=== PATIENT | female | born 1945 | race Caucasian/White ===

== ENCOUNTER 2021-12-29 06:23 | Day surgery (SDC) | payer MEDICARE, BC, SELFPAY ==
[2021-12-29] VITALS (13 sets, daily range): BP systolic 140–177; BP diastolic 84–100; PULSE 68–78; RESP 12–72; TEMP 36.4–36.6; O2SAT 95–97; BMI 30.3
--- NOTE | 2021-12-29 06:49 | SUR.PREOP ---
pt tried to get pinky finger ring off and unable to will let Dr. Sterling aware
[2021-12-29] MEDS: BUPIVACAINE 0.5% 30 ML 5 ML INJECTION (07:32)
[2021-12-29] MEDS: lidocaine HCL 2 % MULTIDOSE 20 ML VIAL 7 ML INJECTION (07:32)
--- NOTE | 2021-12-29 07:48 | SUR.OPER ---
PATIENT QUESTIONS ANSWERED SATISFACTORILY PREOPERATIVELY.? PATIENT BROUGHT TO OR #2 PER CART.? Patient positioned supine on OR #2 bed.?The perioperative?team supported arms bilaterally on arm boards.? Final approval of positioning by surgeon.?
--- NOTE | 2021-12-29 08:05 | SUR.OPER ---
PRIOR TO LOCAL INJECTION IN THE RIGHT HAND, TIME OUT PREFORMED AT 07:31.
--- NOTE | 2021-12-29 08:08 | P.ORPRC_ITS ---
Procedure Note Date of procedure: 12/29/21 Procedure: Preop diagnosis: Recurrent Right upper extremity carpal tunnel syndrome Postop diagnosis: Recurrent Right upper extremity carpal tunnel syndrome Procedure: Revision Right upper extremity carpal tunnel release Anesthesia: Local Surgeon: Jono Sterling MD learning and development assistant: KHAI Rodriguez EBL: 5 mL Complications: None Specimens: None Drains: None Indications: The patient has a history of right upper extremity endoscopic carpal tunnel r elease in 2002. More recently, she has had recurrence of symptoms. EMG suggests recurrent carpal tunnel syndrome, radial sensory neuropathy and upper extremity radiculopathy. Despite appropriate nonoperative management consisting of nighttime bracing and occupational therapy they continue to have symptoms. Operative intervention was offered. The risks, benefits alternatives and expected outcomes were discussed in detail. These included but were not limited to: Infection, bleeding, injury to blood vessel or nerve, venous thromboembolism. All questions were answered to their satisfaction. The patient was placed supine on the operating room table. Local anesthesia was established with 0.5% Marcaine without epinephrine and 2% lidocaine without epinephrine. The hand was prepped and draped in usual sterile fashion. The limb was elevated the forearm pneumatic tourniquet was inflated to 250 mm of mercury. A longitudinal incision was made centered over the radial border of the ring fi nger at the base of the palm. Subcutaneous dissection was sharply taken through the palmar fascia and the palmaris brevis to the transverse carpal ligament. The ligament was divided in line with the incision. Proximal and distal dissection was carried with tenotomy and Metzenbaum scissors for a wide decompression of the carpal tunnel. The nerve was densely adherent to the ulnar side of transver se carpal ligament. This was carefully freed up with tenotomy scissors. The tourniquet was released , bleeding was controlled with direct pressure. The wound was closed with a 3-0 nylon. A bulky dry dressing was applied, sponge and needle counts were correct x 2. The patient tolerated the procedure well, there were no apparent complications. They were sent to same day surgery in satisfactory condition. Plan: Use of the hand as tolerates. Discontinue the intraoperative dressing on postoperative day 3 and may get the wound wet as tolerates. Follow up in the office in 2 weeks for a wound check and suture removal. I will plan to see her a month following that visit to assess her progress.
== END 2021-12-29 08:44 | disposition home or self-care (01) ==
PROVIDERS: PCP Internal Medicine; Visit Provider Orthopaedic Surgery
PROC: (CPT 64721; principal; 2021-12-29 07:30)
DX: G56.01 Carpal tunnel syndrome, right upper limb (principal)
CPT/HCPCS: 64721; J3490

== ENCOUNTER 2022-04-04 10:38 | Outpatient (CLI) | payer MEDICARE, BC, SELFPAY ==
[2022-04-04 09:12] LABS: Cholesterol* 142 mg/dL (90-199)
[2022-04-04 09:13] LABS: HDL Cholesterol* 63 mg/dL (>=50); LDL Cholesterol Calculated 54 mg/dL (<100); Triglycerides* 125 mg/dL (40-149)
[2022-04-04 09:27] LABS: Vitamin D 25 Hydroxy* 19 ng/mL (30-80)
== END 2022-04-04 10:39 | disposition home or self-care (01) ==
PROVIDERS: PCP Internal Medicine; Visit Provider Internal Medicine
DX: Z00.00 Encounter for general adult medical examination without abnormal findings (principal); E78.5 Hyperlipidemia, unspecified; M85.80 Other specified disorders of bone density and structure, unspecified site; I10 Essential (primary) hypertension; E55.9 Vitamin D deficiency, unspecified
CPT/HCPCS: 80061; 82306

== ENCOUNTER 2022-06-07 13:19 | Outpatient (CLI) | payer MEDICARE, BC, SELFPAY | END 2022-06-07 13:20 | disposition home or self-care (01) | LOC: NFLDREF 06-09 10:28 | PROVIDERS: PCP Internal Medicine; Visit Provider Internal Medicine | DX: R10.9 Unspecified abdominal pain (principal); R35.0 Frequency of micturition; N39.0 Urinary tract infection, site not specified | CPT/HCPCS: 87086 ==

== ENCOUNTER 2022-08-10 08:29 | Outpatient (CLI) | payer MEDICARE, BC, SELFPAY ==
--- NOTE | 2022-08-10 09:00 | CRLHL7_ITS ---
For Patients: As a result of the Century Cures Act, medical imaging exams and procedure reports are released immediately into your electronic medical record. You may view this report before your referring provider. If you have questions, please contact your health care provider. INDICATION: Left neck mass. COMPARISON: MRI cervical spine 06/24/2021. TECHNIQUE: CT soft tissue neck with IV contrast. ICD 370, 77 cc. FINDINGS: A marker is not present on the route driver or acquired CT images to further localized reported left neck mass. Normal bilateral parotid glands. Normal left submandibular gland. Atrophic right submandibular gland. Normal thyroid gland. Scattered small normal-sized cervical lymph nodes bilaterally. No supraclavicular or superior mediastinal adenopathy. Nasopharynx and oropharynx are clear. No inflammation within the parapharyngeal fat pads are retropharyngeal space. Asymmetric soft tissue prominence at the left base of tongue (series 3, image 31). No definite underlying mass. However, direct visualization may be helpful for further evaluation. Normal thickness of the epiglottis. Normal glottis with symmetric vocal cords. Lung apices are clear. Cervical spondylosis. No prevertebral soft tissue swelling. Mucous retention cyst right maxillary sinus. Remaining visualized paranasal sinuses and mastoid air cells are clear. IMPRESSION: 1. Normal left submandibular gland. Atrophic right submandibular gland. 2. No adenopathy. 3. Asymmetric mild soft tissue prominence at the left base of tongue. No definite discrete underlying mass. Direct visualization may be helpful for further evaluation. 4. Cervical spondylosis. No prevertebral soft tissue swelling. Please note that all CT scans at this facility use dose modulation, iterative reconstruction, and/or weight-based dosing when appropriate to reduce radiation dose to as low as reasonably achievable. Dictated by Javier Snow MD @ 08/10/2022 3:42:35 PM (Electronically Signed)
[2022-08-10 09:30] LABS: Creatinine* 0.6 mg/dL (0.5-1.5); Estimated Glomerular Filt Rate 91 ml/min
== END 2022-08-10 08:30 | disposition home or self-care (01) ==
LOC: CT 08:30
PROVIDERS: PCP Internal Medicine; Visit Provider Internal Medicine
DX: R22.1 Localized swelling, mass and lump, neck (principal); M47.892 Other spondylosis, cervical region
CPT/HCPCS: 36415; 70491; 82565; Q9967

== ENCOUNTER 2023-04-06 07:30 | Outpatient (CLI) | payer MEDICARE, BC, SELFPAY | END 2023-04-06 07:31 | disposition home or self-care (01) | LOC: NFLDREF 14:53 | PROVIDERS: PCP Internal Medicine; Referring Provider Internal Medicine; Visit Provider Internal Medicine | DX: M85.80 Other specified disorders of bone density and structure, unspecified site (principal); E78.5 Hyperlipidemia, unspecified | CPT/HCPCS: 80061; 82306 ==

== ENCOUNTER 2023-05-24 09:15 | Outpatient (RCR) | payer MEDICARE, BC, SELFPAY ==
--- NOTE | 2023-05-02 13:31 | PT.OPEX ---
PT [facility] Eval PT [facility] Out[facility] Eval Start: 05/02/23 07:20 Freq: Status: Active Protocol: Document 05/02/23 07:20 CRP (Rec: 05/02/23 08:34 CRP [id number]) E-signed By Werner Dhillon PT Physical Therapy Outpatient Evaluation Insurance Information Recert Due Date 07/31/23 Insurance Name Medicare B Medical Diagnosis Low Back Pain Subjective Subjective 2 weeks ago woke up and when getting up felt sharp pain on L side low back that went around to the groin. Buckled her knee it was so painful. 2 -3 days later was still unable to stand up straight and walking was difficult. Went into the Dr after this. Had Xrays of the back and hips/ pelvis. No major issues with Xrays but showed some arthritis. No pt only has 3/ 10 pain after sitting and going to standing. Needs to walk it off and then she is fine. Pt did have a medrol dose pack which she feels has been really helpful. No numbness or tingling. No pain down the LE. Pt is a retired teacher. 2017 she did have a stroke that has left her with some feelings of unsteadiness on her feet Pain Comments 2-3/10 Current Work Status Retired Preferred Name Sofiya Objective Range of Motion Trunk ROM Flex WNL Ext min dec with L LBP R SB WNL L SB min dec with L LBP R rot WNL L rot min/mod dec with L LBP Hip ROM R WNL L flex WNL, IR WNL, ER min restriction with groin pain Strength Myotomes WNL TrA and pelvic flex/ext control shows mild deficit Palpation Pain L paraspinals about L2-3 Sensation/Reflexes Sensation intact to light touch Other/Pertinent Objective PPIVM testing - shows good mobility into R SB, Restricted L SB SLR negative bilat Assessment Assessment/Impression Pt presents to the clinic with signs and sxs consistent with lumbar DDD/DJD and referral pain into the L LE. Pts presentation is characterized by painful loss of ROM with poor tolerance to facet closing, decreased lumbopelvic control, painful hypomobility of lumbar spine segments and poor tolerance to wt bearing activity. Skilled PT is necessary to incorporate ther ex, ther act, nm don, manual therapy and pt education to decrease pain and improve functional mobility. Plan of Care Rehabilitation Potential Excellent Physical Therapy Goals 1. Pt will be 100% independent with HEP in 8 weeks. 2. Pt will go sit to stand throughout the day without c.o pain in 10 weeks. 3. Pt will walk her dog as needed without pain in 12 weeks. Coordination/Communication With Referral Source Treatment Plan/Direct Interventions Joint Mobilization,Manual Therapy,Neuromuscular Re-ed, Therapeutic Activities, Therapeutic Exercises Frequency/Duration 1-2x/wk for 12 weeks Patient Will Be Discharged From Therapy Completion of LTG(s),Skills Plateau,Independent w/HEP, Independently Progressing Evaluation Billing Untimed Code Treatment Minutes 30 Complexity Moderate Certification Information Initial Certification Date 05/02/23 Ending Certification Date 07/31/23 Provider Signature Shows Agreement With POC & Medical Necessity Physician Signature & Date Requested Please Sign/Date Here Physician Comment/Change : Physician NPI Number #
== END 2023-05-24 10:12 | disposition home or self-care (01) ==
PROVIDERS: PCP Internal Medicine; Visit Provider Family Medicine
DX: M54.50 Low back pain, unspecified (principal); Z51.89 Encounter for other specified aftercare
CPT/HCPCS: 77080; 97110; 97140; 97162

== ENCOUNTER 2023-08-15 09:15 | Outpatient (RCR) | payer MEDICARE, BC, SELFPAY ==
--- NOTE | 2023-08-02 13:14 | PT.OPEX ---
Please sign the attached physical therapy evaluation completed on 08/02/23. Thank you. PT [facility] Eval PT [facility] Outpatient Eval Start: 08/02/23 07:16 Freq: Status: Active Protocol: Document 08/02/23 07:16 TLQ (Rec: 08/02/23 12:22 TLQ [id number]) E-signed By Jodi Rhodes DPT Physical Therapy Outpatient Evaluation Insurance Information Recert Due Date 10/31/23 Insurance Name Medicare B,[employer] Medical Diagnosis Other bursitis of hip, left hip M70.72 Treating Diagnosis Pain in left hip M25.552 Stiffness of left hip M25.652 Abnormal gait R26.9 Muscle weakness M62.81 Referring MD Jono Sterling MD Subjective Subjective Sofiya is here today to address pain in her left hip. Saw Dr. Luna who attributed her symptoms to arthritis, she saw PT for this which helped but had some continued pain. Saw Dr. Sterling yesterday who determined her pain was associated with bursitis, plans to have a percutaneous tenotomy following physical therapy to help heal the bursa . Hopes to be able to garden this spring. Has previously done yoga but is not able to tolerate the intense hip positions. Goes to the gym 2- 3x/week and uses the recumbent bike and treadmill, completes bike without pain. Pain increases with sit>stand transitions, initial first steps upon standing, and extended forward bending. Finds alleviation of symptoms with application of heat or a hot shower. History of stroke in 2017, notes lingering balance and dizziness symptoms . Prefers to sleep on her back , does not like lying on her left hip. PMHx: arthritis, stroke (2017) , osteoporosis, GERD Pain Comments at best: 0/10 at worst: 7/10 location: lateral L hip alleviating factors: rest, heat aggravating factors: sit>stand , initial steps, forward bending Date of Last Physician Visit 08/01/23 Current Work Status Retired Occupation Retired teacher Preferred Name Sofiya Precautions Therapy Limitations/Systems Review Not Limited Objective Other/Pertinent Objective RANGE OF MOTION - HIP (L) flexion WFL extension WFL internal rotation 20-degrees external rotation 45-degrees LOWER EXTREMITY STRENGTH hip flexion: R 5, L 4 pain hip extension: R 4+, L 4 hip abduction: 4+ B hip adduction: 4+ B hip IR: 4+ B hip ER: R 4+, L 4 pain PALPATION tender at greater trochanter, glute med/min, glute max JOINT MOBILITY normal SPECIAL TESTS - HIP DANY (+) for pain and restriction FADIR (-) LE distraction (+) relieves symptoms Lateral distraction: no change in symptoms GAIT without A.D. Functional Test Performed & Score Lower Extremity Functional Scale (LEFS) not assessed today, will administer at next visit Assessment Assessment/Impression Sofiya is an 78-year-old woman who presents to physical therapy today to address lateral left hip pain. Had previously attended physical therapy to address onset of symptoms which were associated with her lumbar spine, found some benefit but hip pain persisted. Returned to ortho on 08/01/23 who determined her symptoms were related to bursitis. Today she reports symptom aggravation with sit> stand transitions, initial steps upon standing, forward bending during yard work, and with combined hip flexion and external rotation. She finds relief at home with application of heat, reduction in symptoms in clinic today with manual long-axis distraction and manual interventions. Mobility observed in passive hip internal rotation, tenderness with palpation of left greater trochanter and gluteals. She was educated on today's examination findings and instructed through an initial home exercise program consisting of low-load isometric strength exercises which she was able to complete without irritating her symptoms. Goals were established and patient verbally agreed to POC. She will benefit from skilled interventions to reduce left hip pain for improved tolerance to ADL's and gardening. Primary Functional Limitations left hip pain, muscle weakness , sit>stand transitions, lying on her left side, initial steps, forward bending Plan of Care Rehabilitation Potential Good Physical Therapy Goals In 6-8 visits: - Patient will report 75% improvement in L hip symptoms for improved tolerance to daily activities. - Patient will report ability to garden for 30 minutes with <3/10 pain in her L hip. - Score on LEFS will improve by 9 points (MCID) to indicate improved function of her L hip with ADL's. - Patient will adhere to HEP in order to manage symptoms outside of formal PT. Treatment Plan/Direct Interventions Electrical Stimulation,Gait Training,Ice/Cold/ Vasopneumatic,Manual Therapy, Neuromuscular Re-ed,Self-Care/ Home Management,Therapeutic Activities,Therapeutic Exercises Frequency/Duration 1x/week for 6-8 weeks Patient Will Be Discharged From Therapy Completion of LTG(s),Skills Plateau,Independent w/HEP, Independently Progressing Evaluation Billing Untimed Code Treatment Minutes 30 Complexity Low Certification Information Initial Certification Date 08/02/23 Ending Certification Date 10/31/23 Provider Signature Shows Agreement With POC & Medical Necessity Physician Signature & Date Requested Please Sign/Date Here Physician Comment/Change : Physician NPI Number #
== END 2023-10-18 10:40 | disposition home or self-care (01) ==
PROVIDERS: PCP Internal Medicine; Visit Provider Orthopaedic Surgery
DX: M70.72 Other bursitis of hip, left hip (principal); Z51.89 Encounter for other specified aftercare
CPT/HCPCS: 97110; 97140; 97161

== ENCOUNTER 2023-09-13 06:39 | Outpatient (CLI) | payer MEDICARE, BC, SELFPAY ==
--- OUTSIDE RECORDS SUMMARY | 2023-09-13 06:42 | XMS_ITS | Clinical Summary ---
Author Organization [facility] Address [address] [place] [id number] Care Team Providers Care Dialysis Chief Equipment Technician Name Role Phone Varsha Rendon MD Primary Care Provider Allergies No known active allergies Medications Medication Sig Dispensed Refills Start Date End Date Status zolpidem (AMBIEN) 5 MG tabletIndications:Ins omnia Take 1 tablet (5 mg) by mouth nightly as needed for sleep 30 tablet 0 01/11/2015 Active Multiple Vitamins-Minerals (PRESERVISION AREDS PO) Take by mouth daily Active aspirin (ASA) 325 MG tablet Take 81 mg by mouth daily Active amLODIPine (NORVASC) 5 MG tablet Take 5 mg by mouth daily Active atorvastatin (LIPITOR) 40 MG tablet Take 40 mg by mouth daily Active pantoprazole (PROTONIX) 40 MG EC tablet Take 40 mg by mouth daily Active alendronate (FOSAMAX) 70 MG tabletIndications:Ost eoporosis, senile TAKE 1 TABLET BY MOUTH EVERY 7 DAYS 4 tablet 10/24/2019 Active clopidogrel (PLAVIX) 75 MG tablet 03/14/2017 Active Active Problems Problem Noted Date Diagnosed Date Family history of breast cancer 09/25/2017 Overview: sister Expressive aphasia 03/20/2017 Left pontine stroke 03/17/2017 AK (actinic keratosis) 01/19/2015 Verrucous keratosis 01/19/2015 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 Provider to review and confirm. Gastroesophageal reflux disease without esophagi tis 01/11/2015 Insomnia 01/11/2015 Elevated blood pressure read ing without diagnosis of hypertension 01/11/2015 Family history of colon cancer 12/12/1970 Immunizations Name Administration Dates Next Due COVID-19 MONOVALENT 12+ (Pfizer) 06/10/2020,04/24 Influenza (High Dose) 3 jas nt vaccine 02/18/2019,01/30/2018,02/19/2017,2015,01/11/2015 Influenza Vaccine 65+ (FLUAD) 01/04/2021 Influenza Vaccine 65+ (Fluzone HD) 01/12/2020 Pneumo Conj 13-V (2010&after) 04/23/2011 Pneumococcal 23 valent 04/23/2010 TDAP (Adacel,Boostrix) 04/23/2009 TDAP Vaccine (Boostrix) 01/04/2021 Family History Medical History Relation Comments Lymphoma Father Myocardial Infarction Father Colon Cancer Maternal Grandmother Colon Cancer Mother Other - See Comments Mother MVA Breast Cancer Sister Hyperlipidemia Sister Cancer No family hx of no family HX of skin cancer Relation Status Comments Daughter Alive Father Maternal Grandmother Mother Sister Alive Social History Tobacco Use Types Packs/Day Years Used Date Smoking Tobacco: Never Smokeless Tobacco: Never Tobacco Cessation:Counseling Given: No Alcohol Use Standard Drinks/Week Comments Yes 0 (1 standard drink = 0.6 oz pure alcohol) a glass or wine once or twice a month when we go out to dinn PHQ-2 Answer Date Recorded PHQ-2 Score 0 09/30/2018 Adolescent Education Answer Date Record ed Getting School Help Needed Not on file 02/04 Sex and Gender Information Value Date Recorded Sex Assigned at Female 09/23/2020 4:30 PM CDT Gender Identity Female 09/23/2020 4:30 PM CDT Sexual Orientation Straight 09/23/2020 4: 30 PM CDT Last Filed Vital Signs Vital Sign Reading Time Taken Comments Blood Pressure 124/62 01/12/2021 2:32 PM CDT Pulse 72 09/30/2018 11:10 AM CDT Temperature 36.7 ??C (98 ??F) 02/01/2015 8:54 AM CDT Respiratory Rate 16 02/01/2015 8:54 AM CDT Oxygen Saturation 96% 02/01/2015 8:54 AM CDT Inhaled Oxygen Concentration - - Weight 71.8 kg (158 lb 3.2 oz) 01/12/2021 2:32 P M CDT Height 154.9 cm (5' 1) 01/12/2021 2:32 PM CDT Body Mass Index 29.89 01/12/2021 2:32 PM CDT Plan of Treatment Health Maintenance Due Date Last Done Comments ADVANCE CARE PLANNING 1945 ANNUAL REVIEW OF HM ORDERS 1945 ZOSTER IMMUNIZATION (1 of 2) 1993 RSV VACCINE ( & 60+) (1 - 1-dose 60+ series) 2003 LIPID 01/12/2016 01/11/2015 GLUCOSE 01/11/2018 01/11/2015 FALL RISK ASSESSMENT 10/01/2019 09/30/2018, 09/25/2017, 10/11/2016, Additional history exists MEDICARE ANNUAL WELLNESS VISIT 10/01/2019 09/30/2018, 09/25/2017, 01/11/2015 COVID-19 Vaccine ( season) 2022 01/11/2022, 07/28/2021, 01/13/2021, Additional history exists PHQ-2 (once per calendar year) 2023 09/30/2018, 09/30/2018, 09/25/2017, Additional history exists INFLUENZA VACCINE (Season Ended) 2023 01/11/2022, 01/04/2021, 01/12/2020, Additional history exists DTAP/TDAP/TD IMMUNIZATION (3 - Td or Tdap) 01/04/2031 01/04/2021, 04/23/2009 DEXA 09/25/2032 09/25/2017, 01/20/2015 Pneumococcal Vaccine: 65+ Years Completed 04/23/2011, 04/23/2010 COLONOSCOPY Discontinued 10/21/2014, 09/15/2014 [address] SCREENING Discontinued CT COLONOGRAPHY Discontinued FIT Discontinued FLEX SIG Discontinued HPV IMMUNIZATION Aged Out No longer e ligible based on patient's age to complete this topic IPV IMMUNIZATION Aged Out No longer e ligible based on patient's age to complete this topic MENINGITIS IMMUNIZATION Aged Out No l onger eligible based on patient's age to complete this topic RSV MONOCLONAL ANTIBODY Aged Out No l onger eligible based on patient's age to complete this topic sDNA (Cologuard) Discontinued Procedures Procedure Name Priority Date/Time Associated Diagnosis Comments DX BONE DENSITY Routine 09/25/2017 11:47 AM CDT Asymptomatic postmenopausal state COMPREHENSIVE METABOLIC PANEL Routine 01/11/2015 11:03 AM CDT Routine general medical examination at a health care facility LIPID REFLEX TO DIRECT LDL PANEL Routine 01/11/2015 11:03 AM CDT Routine general medical examination at a health care facility COLONOSCOPY - HIM SCAN Routine 10/21/2014 from Last 3 Months or Most Recently Relevant to Health Maintenance Results * DX Hip/Pelvis/Spine (09/25/2017 11:47 AM CDT) Anatomical Region Laterality Modality Dexa Bone Mineral Den sity Narrative 09/25/2017 3:26 PM CDT DX Hip/Pelvis/Spine Order #: [id number] Study Notes? Kimi Euceda on 09/25/2017 11:52 AM ?? [place] [address] 09/25/2017 ?? PATIENT: Doris Lockwood CHART: [id number] : ??1945 AGE: ??72 year old SEX: ??female REFERRING PHYSICIAN: ??Ness Thompson ? PROCEDURE: ??Bone density scanning was performed using DXA technology of the lumbar spine and hip. ??Scanning was performed on a Layar scanner. ??Reporting is completed in the form of a T-score. ??The T-score represents the standard deviation from peak bone mass based on a young healthy adult. ?? REFERENCE T-SCORES: ?Normal ?-1.0 and greater ?Osteopenia ? Between -1.0 and -2.5 ?Osteoporosis ? -2.5 and less ? RISK FACTORS: ??Post-menopausal CURRENT TREATMENT: ??Calcium ?? FINDINGS: ? Lumbar Spine (L1-L4) ?T-score: ??2.0 ? Left Femoral Neck ?T-score: ??- 2.0 ? Right Femoral Neck ?T-score: ??- 1.9 ? Lumbar (L1-L4) BMD: 1.439 ? Total Hip Mean BMD: 0.884 ? The T score of the total lumbar spine is normal at +2.0. There are likely some atherosclerotic and osteosclerotic changes of the spine at L2-L4 that are falsely elevating the T score. L1 is only -0.3 though. The T score of the left femoral neck is -2.0 which is severe osteopenia The T score of the right femoral neck is -1.9 or moderate osteopenia. The FRAX calculation using the worst hip shows a 10 year probability of any fracture related to osteoporosis of 13% and of hip fracture of 3.1% Kaylin Arauz MD Ness Thompson MD IMG DEXA ORDERABLES * Lipid panel reflex to direct LDL (01/11/2015 11:03 AM CDT) Cholesterol 190 <200 mg/dL [facility] Comment: LDL Cholesterol is the primary guide to therapy. The NCEP recommends further evaluation of: patients with cholesterol greater than 200 mg/dL if additional risk factors are present, cholesterol greater than 240 mg/dL, triglycerides greater than 150 mg/dL, or HDL less than 40 mg/dL. Triglycerides 131 0 - 150 mg/dL [facility] Comment:Fasting specimen HDL Cholesterol 74 >50 mg/dL [facility] LDL Cholesterol Calculated 90 0 - 129 mg/dL [facility] Comment: LDL Cholesterol is the primary guide to therapy: LDL-cholesterol goal in high risk patients is <100 mg/dL and in very high risk patients is <70 mg/dL. VLDL-Cholesterol 26 0 - 30 mg/dL [facility] Cholesterol/HDL Ratio 2.6 0.0 - 5.0 [facility] Blood specimen (specimen) 01/11/2015 11:03 AM CDT 01/11/2015 11:06 AM CDT Flor Antonio TRAIN OPERATIONS SUPERVISOR ENGRAVER TENDER LAB - BL OOD ORDERABLES [facility] [address] [place] [address] * Comprehensive metabolic panel (01/11/2015 11:03 AM CDT) Sodium 141 133 - 144 mmol/L [facility] Potassium 3.9 3.4 - 5.3 mmol/L [facility] Chloride 105 94 - 109 mmol/L [facility] Carbon Dioxide 30 20 - 32 mmol/L [facility] Anion Gap 6 3 - 14 mmol/L [facility] Glucose 96 70 - 99 mg/dL [facility] Urea Nitrogen 16 7 - 30 mg/dL [facility] Creatinine 0.73 0.52 - 1.04 mg/dL [facility] GFR Estimate 78 >60 mL/min/1. 7m2 [facility] Comment:Non GFR Calc GFR Estimate If Black >90 GFR Calc >60 mL/min/1. 7m2 [facility] Calcium 9.0 8.5 - 10.1 mg/dL [facility] Bilirubin Total 0.6 0.2 - 1.3 mg/dL [facility] Albumin 4.0 3.4 - 5.0 g/dL [facility] Protein Total 7.3 6.8 - 8.8 g/dL [facility] Alkaline Phosphatase 105 40 - 150 U/L [facility] ALT 26 0 - 50 U/L [facility] AST 13 0 - 45 U/L [facility] Blood specimen (specimen) 01/11/2015 11:03 AM CDT 01/11/2015 11:06 AM CDT Flor Antonio TRAIN OPERATIONS SUPERVISOR ENGRAVER TENDER LAB - BL OOD ORDERABLES [facility] [address] [place] [address] * Colonoscopy - HIM Scan (10/21/2014) Narrative Alyssa Ibanez - 10/21/2014 Colonoscopy done on this date: 10/2014 (approximately), by this group: , results were normal. Follow up 5 yrs Patient Reported PROCEDURES from Last 3 Months or Most Recently Relevant to Health Maintenance Care Teams Dialysis Chief Equipment Technician Relationship Specialty Start Date End Date Varsha Rendon MD [facility] [address] [place] [address] PCP - General Internal Medicine 05/24/15
--- OUTSIDE RECORDS SUMMARY | 2023-09-13 06:43 | XMS_ITS | Referral Summary ---
Author Organization [facility] Address [address] [place] [address] Care Team Providers Care Internet Architect Name Role Phone Varsha Rendon MD Primary [...] TDAP (Adacel,Boostrix) 04/23/2009 TDAP Vaccine (Boostrix) 01/04/2021 Social History Tobacco Use Types Packs/Day Years [...] 01/12/2021 2:32 PM CDT Plan of Treatment Not on file Procedures Procedure Name Priority Date/Time Associated Diagnosis [...] 3:26 PM CDT DX Hip/Pelvis/Spine Order #: [id number] Study Notes? Kimi Euceda on 09/25/2017 11:52 AM ?? [place] [address] 09/25/2017 ?? PATIENT: Doris Lockwood CHART: [id number] : ??1945 AGE: ??72 year old SEX: ??female REFERRING PHYSICIAN: ??Ness Thompson ? PROCEDURE: ??Bone density scanning was performed using DXA technology of the lumbar spine and hip. ??Scanning was performed on a [employer] scanner. ??Reporting is completed in the form [...] 11:03 AM CDT) Cholesterol 190 <200 mg/dL [facility] Comment: LDL Cholesterol is the primary guide to therapy. The NCEP recommends further evaluation of: patients with cholesterol greater than 200 mg/dL if additional risk factors are present, cholesterol greater than 240 mg/dL, triglycerides greater than 150 mg/dL, or HDL less than 40 mg/dL. Triglycerides 131 0 - 150 mg/dL [facility] Comment:Fasting specimen HDL Cholesterol 74 >50 mg/dL [facility] LDL Cholesterol Calculated 90 0 - 129 mg/dL [facility] Comment: LDL Cholesterol is the primary guide to therapy: LDL-cholesterol goal in high risk patients is <100 mg/dL and in very high risk patients is <70 mg/dL. VLDL-Cholesterol 26 0 - 30 mg/dL [facility] Cholesterol/HDL Ratio 2.6 0.0 - 5.0 [facility] Blood specimen (specimen) 01/11/2015 11:03 AM CDT 01/11/2015 11:06 AM CDT Flor Antonio CAR AUDIO INSTALLER SMOKEHOUSE OPERATOR LAB - BL OOD ORDERABLES [facility] [address] [place] [address] * Comprehensive metabolic panel (01/11/2015 11:03 AM CDT) Sodium 141 133 - 144 mmol/L [facility] Potassium 3.9 3.4 - 5.3 mmol/L [facility] Chloride 105 94 - 109 mmol/L [facility] Carbon Dioxide 30 20 - 32 mmol/L [facility] Anion Gap 6 3 - 14 mmol/L [facility] Glucose 96 70 - 99 mg/dL [facility] Urea Nitrogen 16 7 - 30 mg/dL [facility] Creatinine 0.73 0.52 - 1.04 mg/dL [facility] GFR Estimate 78 >60 mL/min/1. 7m2 [facility] Comment:Non GFR Calc GFR Estimate If Black >90 GFR Calc >60 mL/min/1. 7m2 [facility] Calcium 9.0 8.5 - 10.1 mg/dL [facility] Bilirubin Total 0.6 0.2 - 1.3 mg/dL [facility] Albumin 4.0 3.4 - 5.0 g/dL [facility] Protein Total 7.3 6.8 - 8.8 g/dL [facility] Alkaline Phosphatase 105 40 - 150 U/L [facility] ALT 26 0 - 50 U/L [facility] AST 13 0 - 45 U/L [facility] Blood specimen (specimen) 01/11/2015 11:03 AM CDT 01/11/2015 11:06 AM CDT Flor Antonio CAR AUDIO INSTALLER SMOKEHOUSE OPERATOR LAB - BL OOD ORDERABLES [facility] [address] [place] [address] * Colonoscopy - HIM Scan (10/21/2014) Narrative Alyssa Ibanez - 10/21/2014 Colonoscopy done on this date: 10/2014 (approximately), by this group: , results were normal. Follow up 5 yrs Patient Reported PROCEDURES from Last 3 Months or Most Recently Relevant to Health Maintenance Care Teams Internet Architect Relationship Specialty Start Date End Date Varsha Rendon MD [facility] [address] [place] [address] PCP - General Internal Medicine 05/24/15
--- OUTSIDE RECORDS SUMMARY | 2023-09-13 06:43 | XMS_ITS | Clinical Summary ---
Author Organization [facility] Address [place], [place] [address] Care Team Providers Care Digital Printer Name Role Phone Varsha Rendon MD Primary Care Provider [phone] Allergies No known active allergies Medications Medication Sig Dispensed Refills Start Date End Date Status famotidine (PEPCID) 20 mg tablet Take 20 mg by mouth once daily. Active zolpidem (AMBIEN) 5 mg tablet Take 5 mg by mouth at bedtime if needed for Sleep. Active CALCIUM CARBONATE/VITAMIN D3 (CALCIUM + D ORAL) Take 600 mg by mouth. Active VIT A/VIT C/VIT E/ZINC/COPPER (PRESERVISION AREDS ORAL) Take by mouth 2 times daily. Active aspirin chewable 81 mg chewable tablet Take 81 mg by mouth once daily with a meal. Active atorvastatin (LIPITOR) 40 mg tabletIndications:Acute cerebrovascular accident (CVA) (HC) Take 1 tablet by mouth at bedtime. 30 tablet 03/19/2017 Active clopidogrel (PLAVIX) 75 mg tabletIndications:Acute cerebrovascular accident (CVA) (HC) Take 1 tablet by mouth every morning. 30 tablet 03/20/2017 Active levETIRAcetam (KEPPRA) 500 mg tabletIndications:Seizu res (HC) Take 1 tablet by mouth 2 times daily. For possible seizures (not seen on EEG) 60 tablet 03/19/2017 Active pantoprazole (PROTONIX) 40 mg delayed-release tablet Take 40 mg by mouth. Active amLODIPine (NORVASC) 5 mg tablet Take 5 mg by mouth. Active alendronate (FOSAMAX) 70 mg tablet Take 70 mg by mouth. 09/30/2018 Active Active Problems Problem Noted Date Diagnosed Date Expressive aphasia 03/20/2017 Left pontine stroke 03/17/2017 Hyperlipidemia 03/15/2017 Gastroesophageal reflux disease without esophagi tis 03/15/2017 Arterial ischemic stroke, MCA, left, acute 03/14 Immunizations Name Administration Dates Next Due Influenza, High-dose Inactivated 02/19/2017,01/21,01/11/2015 Pneumococcal Poly,23-Valent (Pneumovax) 04/23/19 11 Pneumococcal conj 13-Valent (Prevnar 13) 012 Tdap 04/23/2009 Family History Medical History Relation Name Comments Lymphoma Father non hodgkin lym phoma Cancer-colon Maternal Grandmother Ulcers Mother had ileostomy b ut son after, not sure if had cancer Cancer-breast Sister Relation Name Status Comments Father Maternal Grandfather Maternal Grandmother Mother Paternal Grandfather Paternal Grandmother Sister Alive Social History Tobacco Use Types Packs/Day Years Used Date Smoking Tobacco: Never Smokeless Tobacco: Never Comments:did try to smoke fo r a few months in college- got too dizzy Alcohol Use Standard Drinks/Week Comments Yes 2 (1 standard drink = 0.6 oz pur e alcohol) per month Sex and Gender Information Value Date Recorded Sex Assigned at Not on file Gender Identity Not on file Sexual Orientation Not on file Obstetrics History Last Filed Vital Signs Vital Sign Reading Time Taken Comments Blood Pressure 123/82 06/19/2019 1:15 PM ENGINEERING ADMINISTRATOR Pulse 79 06/19/2019 1:15 PM ENGINEERING ADMINISTRATOR Temperature 36.4 ??C (97.6 ??F) 03/19/2017 9:48 AM CS T Respiratory Rate 14 03/19/2017 9:48 AM ENGINEERING ADMINISTRATOR Oxygen Saturation 95% 03/19/2017 9:48 AM ENGINEERING ADMINISTRATOR Inhaled Oxygen Concentration - - Weight 70.8 kg (156 lb) 06/19/2019 1:15 PM ENGINEERING ADMINISTRATOR Height 154.9 cm (5' 1) 06/19/2019 1:15 PM ENGINEERING ADMINISTRATOR Body Mass Index 29.48 06/19/2019 1:15 PM ENGINEERING ADMINISTRATOR Plan of Treatment Health Maintenance Due Date Last Done Comments Depression screening for age 12+ 1955 Zoster (shingles) series for age 50+ (1 of 2) 1993 DEXA/DXA scan for age 65+ 2008 Medicare Wellness for age 65+ 2008 Tetanus booster 04/23/2019 04/23/2009 BMI (ht and wt on same day) for age 18+ 06/19/2020 06/19/2019 COVID-19 vaccine series (2022- season) 2022 Influenza for age 65+ 12/23/2023 02/19/2017 , 02/04/2016, 01/11/2015 Tdap Completed 04/23/2009 Pneumococcal series for age 65+ Completed 2, 04/23/2010 Advance Directives * Full Code (Latest Code Status on File) Date Activated Date Inactivated Comments 03/14/2017 10:58 PM 03/19/2017 4:49 PM Care Teams Digital Printer Relationship Specialty Start Date End Date Varsha Rendon MD [address] [facility] [place] [address] PCP - General Internal Medicine 03/19/17
--- OUTSIDE RECORDS SUMMARY | 2023-09-13 06:43 | XMS_ITS | Continuity of Care Document ---
Author Organization [facility] Address [address] [address] [place] [address] Phone Care Team Providers Care Tanner Rotary Drum Continuous Process Name Role Phone No Information Unavailable Unavailable Allergies, Adverse Reactions, Alerts Substance Reaction Status Criticality No Known allergies Medications Medication Instructions Dosage Effective Dates (start - stop) Status Comments clopidogrel 75 mg tablet take 1 tablet by oral route every day 75 MG - Active atorvastatin 40 mg tablet take 1 tablet by oral route every day 40 MG - Active pantoprazole 40 mg tablet,delayed release take 1 tablet by ORAL route every day 40 MG - Active amlodipine 5 mg tablet take 1 tablet by ORAL route every day 5 MG - Active Fosamax 70 mg tablet take 1 tablet by ORAL route every week in the morning, at least 30 minutes before the first food, beverage, or medication of the day 70 MG - Active PRESERVISION AREDS (unknown strength) Not Available - Active aspirin 81 mg tablet,delayed release take 1 tablet by oral route every day 81 MG - Active omeprazole 20 mg capsule,delayed release take 1 capsule by oral route every day 20 MG No Longer Active famotidine 40 mg tablet take 1 tablet by oral route every day at bedtime 40 MG No Longer Active atorvastatin 10 mg tablet take 1 tablet by oral route every day 10 MG No Longer Active zolpidem 5 mg tablet take 1 tablet by oral route every day as needed 5 MG - No Longer Active Procedures Procedure Date Colonoscopy Flex; W/remov Les- 21 Level Iv-surg Path Gross/micro 21 Colonoscopy Flex; W/bx 1/mx Level Iv-surg Path Gross/micro 15 Advance Directives Directive Yes / No Effective Date File Name No Information Encounters Encounter Description Practice Location Reason(s) For Visit Diagnoses Date Provider Providers Copied on Encounter [facility] Lela MAYELIN, [address] [address], [place], [id number], [place] tel:[phone] No Information 1 No Information [facility] Lela MAYELIN, [address] [address], [place], [id number], [place] tel:[phone] [facility] Personal history of colonic polypsColorectal polyp detected on colonoscopyDiver ticulosis of colon without diverticulitisEn counter for screening for malignant neoplasm of colonBenign neoplasm of descending colonDvrtclos of lg int w/o perforation or abscess w/o bleedingBenign neoplasm of descending colonPersonal history of colonic polyps 1 Jack Hernandez. [address] [place] [address], [id number], [place]. tel:[phone] Referring Provider: Referral Self, USE FOR SELF REFERRALS. [facility] Lela MAYELIN, [address] [address], [place], [id number], [place] tel:[phone] [facility] No Information 1 Jack Hernandez. [address], [id number], [place]. tel:[phone] [facility] Lela MAYELIN, [address] [address], [place], [id number], [place] tel:[phone] [facility] Colon polypDiverticulo sisColon Cancer ScreeningFamily Hx GI Tract CancerDiverticul osis Of ColonBenign Neoplasm Colon 5 No Information [facility] Lela MAYELIN, [address] [address], [place], [id number], tel:[phone] [facility] External Referral 5 Jordan Silva. [address] [facility], [address], [id number], [place]. tel:[phone] Family History Family Member Type Diagnosis Age At Onset Father Problem (finding) Non-Hodgkin's lymphoma Mother Problem (finding) Maternal grandmother Problem (finding) Maternal grandmother Problem (finding) cancer of colon Daughter Problem (finding) Alive and well Sister Problem (finding) Alive and well Father Problem (finding) Immunizations Vaccine Date Status Comments SARS-COV-2 (COVID-19) vaccin e, mRNA, spike protein, LNP, preservative free, 30 mcg/0.3mL dose administered Note: [facility] bi-direct ional interface ; Source: Other Registry SARS-COV-2 (COVID-19) vaccin e, mRNA, spike protein, LNP, preservative free, 30 mcg/0.3mL dose administered Note: [facility] bi-direct ional interface ; Source: Other Registry influenza, high-dose seasona l, quadrivalent, .7mL dose, preservative free administered Note: [facility] bi-direct ional interface ; Source: Other Registry influenza, high dose seasona l, preservative-free administered Note: [facility] bi-direct ional interface ; Source: Other Registry influenza, high dose seasona l, preservative-free administered Note: [facility] bi-direct ional interface ; Source: Other Registry influenza, high dose seasona l, preservative-free administered Note: [facility] bi-direct ional interface ; Source: Other Registry influenza, high dose seasona l, preservative-free administered Note: [facility] bi-direct ional interface ; Source: Other Registry influenza, high dose seasona l, preservative-free administered Note: [facility] bi-direct ional interface ; Source: Other Registry Prevnar administered Note: [facility] bi-d irectional interface ; Source: Other Registry Pneumovax administered Note: [facility] bi-d irectional interface ; Source: Other Registry tetanus toxoid, reduced diphtheria toxoid, and acellular pertussis vaccine, adsorbed administered Note: [facility] b i-directional interface ; Source: Other Registry Payers Payer name Insurance type Covered constitution party ID Authoriza tion(s) No Information Social History Type Description Quantity Date Captured Comments Sex Female Smoking Status No Information Chief Complaint And Reason For Visit No Information Reason For Referral Reason For Referral No Information Plan Of Treatment Date Type Action Status Referral Ordered: Colonoscopy Appointment date/timeframe: 09/15/2014 ordered History Of Present Illness Encounter Date Complaint History Of Prese nt Illness No Information Functional Status Date Functional Assessmen t No Information Instructions Date Instruction Additional Infor mation Diverticulosis/Diverticulitis Re lated to Colorectal polyp detected on colonoscopy Colon Polyps Related to Color ectal polyp detected on colonoscopy Colon Cancer Prevention Related to Colorectal polyp detected on colonoscopy High Fiber Diet Related to Color ectal polyp detected on colonoscopy Colon Cancer Prevention Related to Colon polyp Colon Polyps Related to Colon polyp Diverticulosis/Diverticulitis Re lated to Colon polyp Assessments Type Assessment Date No Information Patient Care Teams Name Effective Dates (start - stop) Status Members No Information
--- OUTSIDE RECORDS SUMMARY | 2023-09-13 06:43 | XMS_ITS | Encounter Summary ---
Author Organization [facility] Address [address] [place] [address] Care Team Providers Care Rater Associate Name Role Phone Flor Antonio APRN, CNP Unavailable Verified, No Ref-Primary Primary Care Provider U Liv Fregoso MD Unavailable Varsha Rendon MD Primary Care Provider Ness Thompson MD Unavailable Kelly Watson APRN DAIRY TECHNICIAN Unavailable Ness Thompson MD Unavailable Kelly Watson APRN DAIRY TECHNICIAN Unavailable Ness Thompson MD Unavailable Reason for Referral * CV Cardio consult - Closed Specialty Diagnoses / Procedures Referred By Nicolette t Referred To Contact Diagnoses Elevated blood pressure reading without diagnosis of hypertension Flor Antonio APRN CNP [address] [address] [facility] [address] [place] [address] [address] [place] [address] Phone: [phone] Referral ID Status Reason Start Date Expiration Date Visits Re quested Visits Authorized [id number] Closed 05/03/2015 05/02/2016 1 1 Comments Your provider has referred you to: [facility]: [email or web address] [facility]: [facility] [email or web address] [facility]: [facility] - [facility] [email or web address] Please be aware that coverage of these services is subject to the terms and limitations of your health insurance plan. Call member services at your health plan with any benefit or coverage questions. Type of Referral: New Cardiology Consult Timeframe requested: Within 1 month Please bring the following to your appointment: >> Any x-rays, CTs or MRIs which have been performed. Contact the facility where they were done to arrange for picker tender prior to your scheduled appointment. Any new CT, MRI or other procedures ordered by your specialist must be performed at a [facility] facility or coordinated by your clinic's referral office. >> List of current medications >> This referral request >> Any documents/labs given to you for this referral AGE SALES REPRESENTATIVE Reason for Visit * Reason Onset Date Comments Referral 04/30/2015 Cardiology Encounter Details Date Type Department Care Team ([facility] st Contact Info) Description 04/30/[address] [address] Flor Antonio APRN CNP [address] [id number] Referral (Cardiology) Social History Tobacco Use Types Packs/Day Years Used Date Smoking Tobacco: Never Smokeless Tobacco: Never Alcohol Use Standard Drinks/Week Comments Yes 0 (1 standard drink = 0.6 oz pure alcohol) a glass or wine once or twice a month when we go out to dinn Sex and Gender Information Value Date Recorded Sex Assigned at Female 09/23/2020 4:30 PM CDT Gender Identity Female 09/23/2020 4:30 PM CDT Sexual Orientation Straight 09/23/2020 4: 30 PM CDT documented as of this encounter Miscellaneous Notes * Telephone Encounter - Armen Rhodes RN - 05/03/2015 9:08 AM CST Professor Of Chemical Engineering reviewed - and returned call to patient 1. Left non detailed voicemail for patient to check Mychart or return call to clinic 2. Professor Of Chemical Engineering sent patient ChiScanhart message with referral information attached Armen Rhodes RN AGE SALES REPRESENTATIVE * Telephone Encounter - Flor Antonio APRN CNP - 05/03/2015 8:53 AM CST Referral approved. AGE SALES REPRESENTATIVE * Telephone Encounter - Eben Parish RN - 04/30/2015 3:27 PM CST Pended referral Sign if you agree. Alonzo Parish RN AGE SALES REPRESENTATIVE * Telephone Encounter - Fallon Shin - 04/30/2015 1:57 PM CST Main reason for the call: Doris is calling in needing a referral for Cardiology. She states backin September 2014 she saw [place] for the first time and had High BP. She had to follow 2-3 weeks after that and was doing okay. Now patient states her BP is high again and wants to see a lead supply worker. Please call patient to discuss. (If Osheet) brief description and duration of symptoms Have you offered an Evisit or Virtual visit if appropriate? Wants a reply via Phone Ok for the call to wait for PCP? NO (be aware that if the patients PCP is out of clinic to be sure you are letting the patient know when they will be back in. Look not only at regularly scheduled dayoff but if they are on vacation or not.) May leave detailed message?: YES Consent on file to speak with caller? YES. If not, please obtain verbal consent from patient prior to sending the message. A RX may be necessary please provide name and location of the patients Preferred pharmacy: ---- AGE SALES REPRESENTATIVE documented in this encounter Plan of Treatment Scheduled Referrals Name Type Priority Associated Diagnoses Orde r Schedule CARDIOLOGY EVAL ADULT REFERRAL Referral Routine Elevated blood pressure reading without diagnosis of hypertension Ordered: 05/03/2015 documented as of this encounter Visit Diagnoses Diagnosis Elevated blood pressure reading without diagnosis of hypertension- Primary documented in this encounter Care Teams Rater Associate Relationship Specialty Start Date End Date Verified, No Ref-Primary PCP - General 01/12/15 05/23/15 Varsha Rendon MD [facility] [address] [place] [address] PCP - General Internal Medicine 05/24/15 Flor Antonio APRN DAIRY TECHNICIAN Referring Physician Nurse Practitioner 01/12/15 10/21/20 Liv Costa MD [facility] [address] [facility] [address] [place], [place] [address] Dermatology 01/12/15 03/12/17 Ness Thompson MD XXX RETIRED 09/20/2021 XXX Assigned OBGYN Provider 02/13/2004/03 Kelly Watson APRN DAIRY TECHNICIAN [address] [facility] [address] [place] [address] Assigned OBGYN Provider 12/26/20 Ness Thompson MD XXX RETIRED 09/20/2021 XXX Assigned OBGYN Provider 01/16/21 Kelly Watson APRN [facility] [address] [address] Assigned OBGYN Provider 01/14/22 3 3 Ness Thompson MD XXX RETIRED 09/20/2021 XXX Assigned OBGYN Provider 06/24/22 documented as of this encounter
--- OUTSIDE RECORDS SUMMARY | 2023-09-13 06:43 | XMS_ITS | Encounter Summary ---
Author Organization [facility] Address [address] [place] [address] Care Team Providers Care Fountain Pen Turner Name Role Phone MelykishaFlor serrato APRN VINYL DIPPER Unavailable Verified, No Ref-Primary Primary Care Provider U Lvi Fregoso MD Unavailable Varsha Rendon MD Primary Care Provider Ness Thompson MD Unavailable Kelly Watson APRN VINYL DIPPER Unavailable Ness Thompson MD Unavailable [phone] Kelly Watson APRN VINYL DIPPER Unavailable Ness Thompson MD Unavailable [phone] Encounter Details Date Type Department Care Team (Late st Contact Info) Description 05/03/2015 [facility] [address] [address] Armen Rhodes RN Social History Tobacco Use Types Packs/Day Years [...] PM CDT documented as of this encounter Plan of Treatment Not on file documented as of this encounter Visit Diagnoses Not on filedocumented in this encounter Care Teams Fountain Pen Turner Relationship Specialty Start Date End Date Verified, No Ref-Primary PCP - General 01/12/15 05/23/15 Varsha Rendon MD [facility] & [address] [address] PCP - General Internal Medicine 05/24/15 Flor Antonio APRN VINYL DIPPER Referring Physician Nurse Practitioner 01/12/15 10/21/20 Liv Costa MD [facility] [address] [address] Dermatology 01/12/15 03/12/17 Ness Thompson MD XXX RETIRED 09/20/2021 XXX Assigned OBGYN Provider 02/13/2004/03 Kelly Watson APRN VINYL DIPPER [address] [facility] [address] [place] [address] Assigned OBGYN Provider 12/26/20 Ness Thompson MD XXX RETIRED 09/20/2021 XXX Assigned OBGYN Provider 01/16/21 Kelly Watson APRN VINYL DIPPER [address] [facility] [address] [place] [address] Assigned OBGYN Provider 01/14/22 3 3 Ness Thompson MD XXX RETIRED 09/20/2021 XXX Assigned OBGYN Provider 06/24/22 documented as of this encounter
--- OUTSIDE RECORDS SUMMARY | 2023-09-13 06:43 | XMS_ITS | Continuity of Care Document ---
Author Organization [facility] Address [address] [address] [place] [address] Care Team Providers Care Carburetor Specialist Name Role Phone [place], [place] Unavailable Unav ailable Procedures Procedure Date Colono Advance Directives Directive Yes / No Effective Date File Name No Information Encounters Encounter Description Practice Location Reason(s) For Visit Diagnoses Date Provider Providers Copied on Encounter [facility], [address] [address], [place], [place], [id number], [facility] No Information [facility]. [address] [address], [place], [place], [id number], . tel:[phone] Family History Family Member Type Diagnosis Age At Onset No Information Payers Payer name Insurance type Covered republican ID Authoriza tion(s) No Information Social History Type Description Quantity Date Captured Comments Sex Female Smoking Status No Information Chief Complaint And Reason For Visit No Information Reason For Referral Reason For Referral No Information History Of Present Illness Encounter Date Complaint History Of Prese nt Illness No Information Functional Status Date Functional Assessmen t No Information Instructions Date Instruction Additional Infor mation No Information Assessments Type Assessment Date No Information Patient Care Teams Name Effective Dates (start - stop) Status Members No Information
[2023-09-13 06:56] VITALS: BP 141/78; PULSE 81; RESP 16; O2SAT 96
[2023-09-13 07:30] VITALS: BP 148/92; PULSE 83; RESP 16; O2SAT 97
--- NOTE | 2023-09-13 07:32 | P.ORPRC_ITS ---
Procedure Note Date of procedure: 09/13/23 Procedure: PREOPERATIVE DIAGNOSIS: Left hip abductor tendinopathy/greater trochanteric bursitis POSTOPERATIVE DIAGNOSIS: Left hip abductor tendinopathy/greater trochanteric bursitis NAME OF OPERATION: Percutaneous tenotomy SURGEON: Jono Sterling MD SENIOR CONTROLS ANALYST: aLtricia Story PA-C ANESTHESIA: Local ESTIMATED BLOOD LOSS: 2 mL. COMPLICATIONS: None. SPECIMENS: None. DRAINS: None. PREOPERATIVE ANTIBIOTICS: None INDICATIONS: The patient is a 78-year-old with a history of left hip pain secondary to the above diagnoses. Despite appropriate non operative management, they continue to have symptoms. Operative intervention was recommended. The risks, benefits and expected outcomes were discussed in detail. These included but were not limited to: Infection, bleeding, injury to blood vessel or nerve, venous thromboembolism. All questions were answered to their satisfaction. PROCEDURE: The patient was placed in the lateral decubitus position. The left hip was imaged in the long and short axes with the ultrasound transducer. Normal acoustic landmarks were identified. We then sterilely prepped and draped the skin, and used a sterile probe cover with sterile gel. Local anesthesia was established with 10 mL of a solution containing 2 % lidocaine without epinephrine, 0.5% Marcaine without epinephrine and sodium bicarbonate. An 11 blade was used to incise the skin. The Tenex TX 2 micro tip was used to treat the abductor tendon for a total of 4 minutes and 0 seconds. The incision was Steri-Stripped closed. A dry dressing was applied. Sponge and needle counts were correct x2. The patient tolerated the procedure well. There were no apparent complications. They were discharged to home in satisfactory condition. PLAN: The patient may weightbear as tolerates. Tylenol can be used for pain/discomfort. They may ramp up activity as the hip will allow. They will follow up in the office in 6 weeks to assess their progress.
== END 2023-09-13 07:38 | disposition home or self-care (01) ==
PROVIDERS: PCP Internal Medicine; Visit Provider Orthopaedic Surgery
DX: M70.62 Trochanteric bursitis, left hip (principal)
CPT/HCPCS: 27006; 76942; J0665

== ENCOUNTER 2024-01-17 14:10 | Outpatient (CLI) | payer MEDICARE, BC, SELFPAY ==
--- OUTSIDE RECORDS SUMMARY | 2024-01-20 18:30 | XMS_ITS | Clinical Summary ---
Author Organization [facility] Address [address] [place] [address] Care Team Providers Care Spray Painter Helper Name Role Phone Varsha Rendon MD Primary [...] 3:26 PM CDT DX Hip/Pelvis/Spine Order #: [id number] Study Notes? Kimi Euceda on 09/25/2017 11:52 AM ?? [place] [address] 09/25/2017 ?? PATIENT: Doris Woods [facility] CHART: [id number] : ??1945 AGE: ??72 year old SEX: ??female REFERRING PHYSICIAN: ??Ness Thompson ? PROCEDURE: ??Bone density scanning was performed using DXA technology of the lumbar spine and hip. ??Scanning was performed on a [employer] scanner. ??Reporting is completed in the form [...] 11:03 AM CDT) Cholesterol 190 <200 mg/dL [facility] Comment: LDL Cholesterol is the primary guide to therapy. The NCEP recommends further evaluation of: patients with cholesterol greater than 200 mg/dL if additional risk factors are present, cholesterol greater than 240 mg/dL, triglycerides greater than 150 mg/dL, or HDL less than 40 mg/dL. Triglycerides 131 0 - 150 mg/dL [facility] Comment:Fasting specimen HDL Cholesterol 74 >50 mg/dL [facility] LDL Cholesterol Calculated 90 0 - 129 mg/dL [facility] Comment: LDL Cholesterol is the primary guide to therapy: LDL-cholesterol goal in high risk patients is <100 mg/dL and in very high risk patients is <70 mg/dL. VLDL-Cholesterol 26 0 - 30 mg/dL [facility] Cholesterol/HDL Ratio 2.6 0.0 - 5.0 [facility] Blood specimen (specimen) 01/11/2015 11:03 AM CDT 01/11/2015 11:06 AM CDT Flor Antonio ARTISTIC ASSOCIATE BLOCK CUTTER LAB - BL OOD ORDERABLES [facility] [address] [place] [address] * Comprehensive metabolic panel (01/11/2015 11:03 AM CDT) Sodium 141 133 - 144 mmol/L [facility] Potassium 3.9 3.4 - 5.3 mmol/L [facility] Chloride 105 94 - 109 mmol/L [facility] Carbon Dioxide 30 20 - 32 mmol/L [facility] Anion Gap 6 3 - 14 mmol/L [facility] Glucose 96 70 - 99 mg/dL [facility] Urea Nitrogen 16 7 - 30 mg/dL [facility] Creatinine 0.73 0.52 - 1.04 mg/dL [facility] GFR Estimate 78 >60 mL/min/1. 7m2 [facility] Comment:Non GFR Calc GFR Estimate If Black >90 GFR Calc >60 mL/min/1. 7m2 [facility] Calcium 9.0 8.5 - 10.1 mg/dL [facility] Bilirubin Total 0.6 0.2 - 1.3 mg/dL [facility] Albumin 4.0 3.4 - 5.0 g/dL [facility] Protein Total 7.3 6.8 - 8.8 g/dL [facility] Alkaline Phosphatase 105 40 - 150 U/L [facility] ALT 26 0 - 50 U/L [facility] AST 13 0 - 45 U/L [facility] Blood specimen (specimen) 01/11/2015 11:03 AM CDT 01/11/2015 11:06 AM CDT Flor Antonio ARTISTIC ASSOCIATE BLOCK CUTTER LAB - BL OOD ORDERABLES [facility] [address] [place] [address] * Colonoscopy - HIM Scan (10/21/2014) Narrative Alyssa Ibanez - 10/21/2014 Colonoscopy done on this date: 10/2014 (approximately), by this group: , results were normal. Follow up 5 yrs Patient Reported PROCEDURES from Last 3 Months or Most Recently Relevant to Health Maintenance Care Teams Spray Painter Helper Relationship Specialty Start Date End Date Varsha Rendon MD [facility] [address] [place] [address] PCP - General Internal Medicine 05/24/15
--- OUTSIDE RECORDS SUMMARY | 2024-01-20 18:31 | XMS_ITS | Continuity of Care Document ---
Author Organization [facility] Address [address] [address] [place] [address] Phone Care Team Providers Care Tortilla Maker Name Role Phone No Information Unavailable Unavailable [...] Diagnoses Date Provider Providers Copied on Encounter [facility] Kidlandia MAYELIN, [address] [address], [place], [id number], [place] tel:[phone] No Information 1 No Information [facility] Kidlandia MAYELIN, [address] [address], [place], [id number], [place] tel:[phone] [facility] Personal history of colonic polypsColorectal polyp detected on colonoscopyDiver ticulosis of colon without diverticulitisEn counter for screening for malignant neoplasm of colonBenign neoplasm of descending colonDvrtclos of lg int w/o perforation or abscess w/o bleedingBenign neoplasm of descending colonPersonal history of colonic polyps 1 Jack Hernandez. [address] [place] [address], [id number], [place]. tel:[phone] Referring Provider: Referral Self, USE FOR SELF REFERRALS. [facility] Kidlandia MAYELIN, [address] [address], [place], [id number], [place] tel:[phone] [facility] No Information 1 Jack Hernandez. [address], [id number], [place]. tel:[phone] [facility] Kidlandia MAYELIN, [address] [address], [place], [id number], [place] tel:[phone] [facility] Colon polypDiverticulo sisColon Cancer ScreeningFamily Hx GI Tract CancerDiverticul osis Of ColonBenign Neoplasm Colon 5 No Information [facility] Kidlandia MAYELIN, [address] [address], [place], [id number], tel:[phone] [facility] External Referral 5 Jordan Silva. [address] [facility], [address], [id number], [place]. tel:[phone] Family History Family Member Type Diagnosis Age [...] Registry Payers Payer name Insurance type Covered republican [...]
--- OUTSIDE RECORDS SUMMARY | 2024-01-20 18:31 | XMS_ITS | Continuity of Care Document ---
Author Organization [facility] Address [address] [address] [place] [address] Care Team Providers Care Shore Hand Dredge Or Barge Name Role Phone [place], [place] Unavailable Unav ailable Procedures Procedure Date Colono Advance Directives Directive Yes / No Effective Date File Name No Information Encounters Encounter Description Practice Location Reason(s) For Visit Diagnoses Date Provider Providers Copied on Encounter [facility], [address] [address], [place], [place], [id number], [facility] No Information [facility]. [address] [address], [place], [place], [id number], . tel:[phone] Family History Family Member Type Diagnosis Age At Onset No Information Payers Payer name Insurance type Covered libertarian ID Authoriza tion(s) No Information Social History [...]
--- OUTSIDE RECORDS SUMMARY | 2024-01-20 18:31 | XMS_ITS | Clinical Summary ---
Author Organization [facility] Address [place], [place] [address] Care Team Providers Care Internal Medicine Nurse Practitioner Name Role Phone Varsha Rendon MD Primary Care Provider [phone] Allergies No known active allergies Medications Medication [...] Comments Blood Pressure 123/82 06/19/2019 1:15 PM YARD HOSTLER Pulse 79 06/19/2019 1:15 PM YARD HOSTLER Temperature 36.4 ??C (97.6 ??F) 03/19/2017 9:48 AM CS T Respiratory Rate 14 03/19/2017 9:48 AM YARD HOSTLER Oxygen Saturation 95% 03/19/2017 9:48 AM YARD HOSTLER Inhaled Oxygen Concentration - - Weight 70.8 kg (156 lb) 06/19/2019 1:15 PM YARD HOSTLER Height 154.9 cm (5' 1) 06/19/2019 1:15 PM YARD HOSTLER Body Mass Index 29.48 06/19/2019 1:15 PM YARD HOSTLER Plan of Treatment Health Maintenance Due Date [...] 10:58 PM 03/19/2017 4:49 PM Care Teams Internal Medicine Nurse Practitioner Relationship Specialty Start Date End Date Varsha Rendon MD [address] [place] [address] PCP - General Internal Medicine 03/19/17
--- OUTSIDE RECORDS SUMMARY | 2024-01-20 18:31 | XMS_ITS | Encounter Summary ---
Author Organization [place] Address [address] [place] [address] Care Team Providers Care Lab Manager Name Role Phone MelykishaFlor serrato APRN QI SPECIALIST Unavailable Verified, No Ref-Primary Primary Care Provider U Liv Fregoso MD Unavailable Varsha Rendon MD Primary Care Provider Ness Thompson MD Unavailable Kelly Watson APRN QI SPECIALIST Unavailable Ness Thompson MD Unavailable [phone] Kelly Watson APRN QI SPECIALIST Unavailable Ness Thompson MD Unavailable [phone] Encounter Details Date Type Department Care Team (Late st Contact Info) Description 05/03/2015 [facility] [address] [address] Armen Rhodes RN Social History [...] on filedocumented in this encounter Care Teams Lab Manager Relationship Specialty Start Date End Date Verified, No Ref-Primary PCP - General 01/12/15 05/23/15 Varsha Rendon MD [facility] & [address] [address] PCP - General Internal Medicine 05/24/15 Flor Antonio APRN QI SPECIALIST Referring Physician Nurse Practitioner 01/12/15 10/21/20 Liv Costa MD [facility] D[facility] [address] [address] Dermatology 01/12/15 03/12/17 Ness Thompson MD XXX RETIRED 09/20/2021 XXX Assigned OBGYN Provider 02/13/2004/03 Kelly Watson APRN QI SPECIALIST [address] [facility] [address] [address] Assigned OBGYN Provider 12/26/20 Ness Thompson MD XXX RETIRED 09/20/2021 XXX Assigned OBGYN Provider 01/16/21 Kelly Watson APRN QI SPECIALIST [address] [facility] [address] [address] Assigned OBGYN Provider 01/14/22 3 3 Ness Thompson MD XXX RETIRED 09/20/2021 XXX Assigned OBGYN Provider 06/24/22 documented as of this encounter
--- OUTSIDE RECORDS SUMMARY | 2024-01-20 18:31 | XMS_ITS | Referral Summary ---
Author Organization [place] Address [address] [place] [address] Care Team Providers Care Farm Agent Name Role Phone Varsha Rendon MD Primary [...] 3:26 PM CDT DX Hip/Pelvis/Spine Order #: [id number] Study Notes? Kimi Euceda on 09/25/2017 11:52 AM ?? [place] [address] 09/25/2017 ?? PATIENT: Doris Lockwood CHART: [id number] : ??1945 AGE: ??72 year old SEX: ??female REFERRING PHYSICIAN: ??Ness Cremer ? PROCEDURE: ??Bone density scanning was performed using DXA technology of the lumbar spine and hip. ??Scanning was performed on a [employer] scanner. ??Reporting is completed in the form [...] 11:03 AM CDT) Cholesterol 190 <200 mg/dL [facility] Comment: LDL Cholesterol is the primary guide to therapy. The NCEP recommends further evaluation of: patients with cholesterol greater than 200 mg/dL if additional risk factors are present, cholesterol greater than 240 mg/dL, triglycerides greater than 150 mg/dL, or HDL less than 40 mg/dL. Triglycerides 131 0 - 150 mg/dL [facility] Comment:Fasting specimen HDL Cholesterol 74 >50 mg/dL [facility] LDL Cholesterol Calculated 90 0 - 129 mg/dL [facility] Comment: LDL Cholesterol is the primary guide to therapy: LDL-cholesterol goal in high risk patients is <100 mg/dL and in very high risk patients is <70 mg/dL. VLDL-Cholesterol 26 0 - 30 mg/dL [facility] Cholesterol/HDL Ratio 2.6 0.0 - 5.0 [facility] Blood specimen (specimen) 01/11/2015 11:03 AM CDT 01/11/2015 11:06 AM CDT Flor Antonio COMMERCIAL MANAGEMENT ACCOUNTANT DISPLAY FABRICATOR LAB - BL OOD ORDERABLES [facility] [address] [place] [address] * Comprehensive metabolic panel (01/11/2015 11:03 AM CDT) Sodium 141 133 - 144 mmol/L [facility] Potassium 3.9 3.4 - 5.3 mmol/L [facility] Chloride 105 94 - 109 mmol/L [facility] Carbon Dioxide 30 20 - 32 mmol/L [facility] Anion Gap 6 3 - 14 mmol/L [facility] Glucose 96 70 - 99 mg/dL [facility] Urea Nitrogen 16 7 - 30 mg/dL [facility] Creatinine 0.73 0.52 - 1.04 mg/dL [facility] GFR Estimate 78 >60 mL/min/1. 7m2 [facility] Comment:Non GFR Calc GFR Estimate If Black >90 GFR Calc >60 mL/min/1. 7m2 [facility] Calcium 9.0 8.5 - 10.1 mg/dL [facility] Bilirubin Total 0.6 0.2 - 1.3 mg/dL [facility] Albumin 4.0 3.4 - 5.0 g/dL [facility] Protein Total 7.3 6.8 - 8.8 g/dL [facility] Alkaline Phosphatase 105 40 - 150 U/L [facility] ALT 26 0 - 50 U/L [facility] AST 13 0 - 45 U/L [facility] Blood specimen (specimen) 01/11/2015 11:03 AM CDT 01/11/2015 11:06 AM CDT Flor Antonio COMMERCIAL MANAGEMENT ACCOUNTANT DISPLAY FABRICATOR LAB - BL OOD ORDERABLES [facility] [address] [place] [address] * Colonoscopy - HIM Scan (10/21/2014) Narrative Alyssa Ibanez - 10/21/2014 Colonoscopy done on this date: 10/2014 (approximately), by this group: , results were normal. Follow up 5 yrs Patient Reported PROCEDURES from Last 3 Months or Most Recently Relevant to Health Maintenance Care Teams Farm Agent Relationship Specialty Start Date End Date Varsha Rendon MD [facility] [address] [place] [address] PCP - General Internal Medicine 05/24/15
--- OUTSIDE RECORDS SUMMARY | 2024-01-20 18:31 | XMS_ITS | Encounter Summary ---
Author Organization [facility] Address [address] [place] [address] Care Team Providers Care Order Puller Name Role Phone Flor Antonio APRN, CNP Unavailable Verified, No Ref-Primary Primary Care Provider U Liv Fregoso MD Unavailable Varsha Rendon MD Primary Care Provider Ness Thompson MD Unavailable [phone] Kelly Watson APRN LAP MACHINE OPERATOR Unavailable Ness Thompson MD Unavailable Kelly Watson APRN LAP MACHINE OPERATOR Unavailable Ness Thompson MD Unavailable Reason for Referral * CV Cardio consult - Closed Specialty Diagnoses / Procedures Referred By Nicolette t Referred To Contact Diagnoses Elevated blood pressure reading without diagnosis of hypertension Flor Antonio APRN CNP [address] [address] [facility] [address] [place] [address] [address] [place] [address] Phone: [phone] Referral ID Status Reason Start Date Expiration Date Visits Re quested Visits Authorized [id number] Closed 05/03/2015 05/02/2016 1 1 Comments Your provider [facility]: [email or web address] [facility]: [facility] [email or web address] [facility]: [email or web address] Please be aware that coverage of these [...] where they were done to arrange for supervisor opening and picking prior to your scheduled appointment. Any new CT, MRI or other procedures ordered by your specialist must be performed at a [facility] facility or coordinated by your clinic's referral office. >> List of current medications >> This referral request >> Any documents/labs given to you for this referral [facility] Reason for Visit * Reason Onset Date Comments Referral 04/30/2015 Cardiology Encounter Details Date Type Department Care Team ([facility] st Contact Info) Description 04/30/[address] [address] Flor Antonio APRN CNP [address] [address] Referral (Cardiology) Social History Tobacco Use Types [...] Rhodes RN - 05/03/2015 9:08 AM CST Press Worker Helper reviewed - and returned call to patient 1. Left non detailed voicemail for patient to check Mychart or return call to clinic 2. Press Worker Helper sent patient isockethart message with referral information attached Armen Rhodes RN H HEALER * Telephone Encounter - Flor Antonio APRN CNP - 05/03/2015 8:53 AM CST Referral approved. [facility] HEALER * Telephone Encounter - Eben Parish RN - 04/30/2015 3:27 PM CST Pended referral Sign if you agree. Alonzo Parish RN H HEALER * Telephone Encounter - Fallon Shin - [...] high again and wants to see a forest fire equipment operator. Please call patient to discuss. (If [...] location of the patients Preferred pharmacy: ---- [facility] documented in this encounter Plan of Treatment Scheduled Referrals Name Type Priority Associated Diagnoses Orde r Schedule CARDIOLOGY EVAL ADULT REFERRAL Referral Routine Elevated blood pressure reading without diagnosis of hypertension Ordered: 05/03/2015 documented as of this encounter Visit Diagnoses Diagnosis Elevated blood pressure reading without diagnosis of hypertension- Primary documented in this encounter Care Teams Order Puller Relationship Specialty Start Date End Date Verified, No Ref-Primary PCP - General 01/12/15 05/23/15 Varsha Rendon MD [facility] & [address] [address] PCP - General Internal Medicine 05/24/15 Flor Antonio APRN LAP MACHINE OPERATOR Referring Physician Nurse Practitioner 01/12/15 10/21/20 Liv Costa MD [facility] [address] [facility] [address] [place], [place] [address] Dermatology 01/12/15 03/12/17 Ness Thompson MD XXX RETIRED 09/20/2021 XXX Assigned OBGYN Provider 02/13/2004/03 Kelly Watson APRN LAP MACHINE OPERATOR [address] [facility] [address] [place] [address] Assigned OBGYN Provider 12/26/20 Ness Thompson MD XXX RETIRED 09/20/2021 XXX Assigned OBGYN Provider 01/16/21 Kelly Watson APRN [facility] [address] [facility] [address] Assigned OBGYN Provider 01/14/22 3// 3 Ness Thompson MD XXX RETIRED 09/20/2021 XXX Assigned OBGYN Provider 06/24/22 documented as of this encounter
== END 2024-01-17 14:11 | disposition home or self-care (01) ==
LOC: NFLDREF 01-20 18:29
PROVIDERS: PCP Internal Medicine; Referring Provider Internal Medicine; Visit Provider Internal Medicine
DX: N39.0 Urinary tract infection, site not specified (principal)
CPT/HCPCS: 87086

== ENCOUNTER 2024-01-18 14:26 | Outpatient (CLI) | payer MEDICARE, BC, SELFPAY ==
--- OUTSIDE RECORDS SUMMARY | 2024-01-18 14:29 | XMS_ITS | Clinical Summary ---
Author Organization [facility] [place] Address [address] [place] [address] Care Team Providers Care Batch And Furnace Operator Name Role Phone Varsha Rendon MD Primary [...] MONOVALENT 12+ (Pfizer) 06/10/2020,04/24 Influenza (High Dose) Trival ent,PF (Fluzone) 02/18/2019,01/30/2018,02/19/2017,2015,01/11/2015 Influenza Vaccine 65+ (FLUAD) 01/04/2021 Influenza [...] 1945 ZOSTER IMMUNIZATION (1 of 2) 1993 LIPID 01/12/2016 01/11/2015 GLUCOSE 01/11/2018 01/11/2015 RSV VACCINE (1 - 1-dose 75+ series) 2018 FALL RISK ASSESSMENT 10/01/2019 09/30/2018, 09/25/2017, 10/11/2016, Additional history exists MEDICARE ANNUAL WELLNESS VISIT 10/01/2019 09/30/2018, 09/25/2017, 01/11/2015 PHQ-2 (once per calendar year) 2023 09/30/2018, 09/30/2018, 09/25/2017, Additional history exists COVID-19 Vaccine ( season) 2023 01/11/2022, 07/28/2021, 01/13/2021, Additional history exists INFLUENZA VACCINE (#1) 2023 2, 01/04/2021, 01/12/2020, Additional history exists DTAP/TDAP/TD IMMUNIZATION [...] 3:26 PM CDT DX Hip/Pelvis/Spine Order #: [id number] Study Notes? Kimi Euceda on 09/25/2017 11:52 AM ?? [place] [address] 09/25/2017 ?? PATIENT: [facility] CHART: [id number] : ??1945 AGE: ??72 year old SEX: ??female REFERRING PHYSICIAN: ??Ness Thompson ? PROCEDURE: ??Bone density scanning was performed using DXA technology of the lumbar spine and hip. ??Scanning was performed on a [employer] scanner. ??Reporting is completed in the form [...] 11:03 AM CDT) Cholesterol 190 <200 mg/dL [facility] Comment: LDL Cholesterol is the primary guide to therapy. The NCEP recommends further evaluation of: patients with cholesterol greater than 200 mg/dL if additional risk factors are present, cholesterol greater than 240 mg/dL, triglycerides greater than 150 mg/dL, or HDL less than 40 mg/dL. Triglycerides 131 0 - 150 mg/dL [facility] Comment:Fasting specimen HDL Cholesterol 74 >50 mg/dL [facility] LDL Cholesterol Calculated 90 0 - 129 mg/dL [facility] Comment: LDL Cholesterol is the primary guide to therapy: LDL-cholesterol goal in high risk patients is <100 mg/dL and in very high risk patients is <70 mg/dL. VLDL-Cholesterol 26 0 - 30 mg/dL [facility] Cholesterol/HDL Ratio 2.6 0.0 - 5.0 [facility] Blood specimen (specimen) 01/11/2015 11:03 AM CDT 01/11/2015 11:06 AM CDT Flor Antonio PROPERTY MAN BATTERY CHARGER CONVEYOR LINE LAB - BL OOD ORDERABLES [facility] [address] [place] [address] * Comprehensive metabolic panel (01/11/2015 11:03 AM CDT) Sodium 141 133 - 144 mmol/L [facility] Potassium 3.9 3.4 - 5.3 mmol/L [facility] Chloride 105 94 - 109 mmol/L [facility] Carbon Dioxide 30 20 - 32 mmol/L [facility] Anion Gap 6 3 - 14 mmol/L [facility] Glucose 96 70 - 99 mg/dL [facility] Urea Nitrogen 16 7 - 30 mg/dL [facility] Creatinine 0.73 0.52 - 1.04 mg/dL [facility] GFR Estimate 78 >60 mL/min/1. 7m2 [facility] Comment:Non GFR Calc GFR Estimate If Black >90 GFR Calc >60 mL/min/1. 7m2 [facility] Calcium 9.0 8.5 - 10.1 mg/dL [facility] Bilirubin Total 0.6 0.2 - 1.3 mg/dL [facility] Albumin 4.0 3.4 - 5.0 g/dL [facility] Protein Total 7.3 6.8 - 8.8 g/dL [facility] Alkaline Phosphatase 105 40 - 150 U/L [facility] ALT 26 0 - 50 U/L [facility] AST 13 0 - 45 U/L [facility] Blood specimen (specimen) 01/11/2015 11:03 AM CDT 01/11/2015 11:06 AM CDT Flor Antonio PROPERTY MAN BATTERY CHARGER CONVEYOR LINE LAB - BL OOD ORDERABLES [facility] [address] [place] [address] * Colonoscopy - HIM Scan (10/21/2014) Narrative Alyssa Ibanez - 10/21/2014 Colonoscopy done on this date: 10/2014 (approximately), by this group: , results were normal. Follow up 5 yrs Patient Reported PROCEDURES from Last 3 Months or Most Recently Relevant to Health Maintenance Care Teams Batch And Furnace Operator Relationship Specialty Start Date End Date Varsha Rendon MD [facility] [address] [place] [address] PCP - General Internal Medicine 05/24/15
--- OUTSIDE RECORDS SUMMARY | 2024-01-18 14:29 | XMS_ITS | Encounter Summary ---
Author Organization [facility] Address [address] [place] [address] Care Team Providers Care Printer Slotter Feeder Name Role Phone Flor Antonio APRN, CNP Unavailable Verified, No Ref-Primary Primary Care Provider U Liv Fregsoo MD Unavailable [phone] Varsha Rendon MD Primary Care Provider Ness Thompson MD Unavailable Kelly Watson APRN WINEMAKER Unavailable Ness Thompson MD Unavailable [phone] Kelly Watson APRN WINEMAKER Unavailable Ness Thompson MD Unavailable Reason for Referral * CV Cardio consult - Closed Specialty Diagnoses / Procedures Referred By Nicolette t Referred To Contact Diagnoses Elevated blood pressure reading without diagnosis of hypertension Flor Antonio APRN CNP [address] [address] [facility] [address] [place] [address] [address] [place] [address] Phone: [phone] Referral ID Status Reason Start Date Expiration Date Visits Re quested Visits Authorized [id number] Closed 05/03/2015 05/02/2016 1 1 Comments Your provider has referred you to: [facility]: [facility] [email or web address]/ [facility]: [facility] [email or web address] [facility]: [facility] [email or web address] Please be aware that coverage of these [...] where they were done to arrange for belt picker prior to your scheduled appointment. Any new CT, MRI or other procedures ordered by your specialist must be performed at a [facility] facility or coordinated by your clinic's referral office. >> List of current medications >> This referral request >> Any documents/labs given to you for this referral L WORD PROCESSOR Reason for Visit * Reason Onset Date Comments Referral 04/30/2015 Cardiology Encounter Details Date Type Department Care Team ([facility] st Contact Info) Description 04/30/[address] [address] Flor Antonio APRN CNP [address] [id number] Referral (Cardiology) Social History Tobacco Use Types [...] Rhodes RN - 05/03/2015 9:08 AM CST Lap Welder reviewed - and returned call to patient 1. Left non detailed voicemail for patient to check Mychart or return call to clinic 2. Lap Welder sent patient ConvertMediahart message with referral information attached Armen Rhodes RN L WORD PROCESSOR * Telephone Encounter - Flor Antonio APRN CNP - 05/03/2015 8:53 AM CST Referral approved. L WORD PROCESSOR * Telephone Encounter - Eben Parish RN - 04/30/2015 3:27 PM CST Pended referral Sign if you agree. Alonzo Parish RN L WORD PROCESSOR * Telephone Encounter - Fallon Shin - [...] high again and wants to see a posting machine operator. Please call patient to discuss. (If Osheet) [...] location of the patients Preferred pharmacy: ---- L WORD PROCESSOR documented in this encounter Plan of Treatment Scheduled Referrals Name Type Priority Associated Diagnoses Orde r Schedule CARDIOLOGY EVAL ADULT REFERRAL Referral Routine Elevated blood pressure reading without diagnosis of hypertension Ordered: 05/03/2015 documented as of this encounter Visit Diagnoses Diagnosis Elevated blood pressure reading without diagnosis of hypertension- Primary documented in this encounter Care Teams Printer Slotter Feeder Relationship Specialty Start Date End Date Verified, No Ref-Primary PCP - General 01/12/15 05/23/15 Varsha Rendon MD [facility] & [address] [address] PCP - General Internal Medicine 05/24/15 Flor Antonio APRN WINEMAKER Referring Physician Nurse Practitioner 01/12/15 10/21/20 Liv Costa MD [facility] DER[facility]Y [address] [facility] [address] [place], [place] [address] Dermatology 01/12/15 03/12/17 Ness Thompson MD XXX RETIRED 09/20/2021 XXX Assigned OBGYN Provider 02/13/2004/03 Kelly Watson APRN WINEMAKER [address] [facility] [address] [place] [address] Assigned OBGYN Provider 12/26/20 Ness Thompson MD XXX RETIRED 09/20/2021 XXX Assigned OBGYN Provider 01/16/21 Kelly Watson APRN [facility] [address] [facility] [address] [address] Assigned OBGYN Provider 01/14/22 3// 3 Ness Thompson MD XXX RETIRED 09/20/2021 XXX Assigned OBGYN Provider 06/24/22 documented as of this encounter
--- OUTSIDE RECORDS SUMMARY | 2024-01-18 14:29 | XMS_ITS | Referral Summary ---
Author Organization [facility] Address [address] [place] [address] Care Team Providers Care Laydown Machine Operator Name Role Phone Varsha Rendon MD [...] 3:26 PM CDT DX Hip/Pelvis/Spine Order #: [id number] Study Notes? Kimi Euceda on 09/25/2017 11:52 AM ?? [place] [address] 09/25/2017 ?? PATIENT: Doris Lockwood CHART: [id number] : ??1945 AGE: ??72 year old SEX: ??female REFERRING PHYSICIAN: ??Ness Cremer ? PROCEDURE: ??Bone density scanning was performed using DXA technology of the lumbar spine and hip. ??Scanning was performed on a [employer] scanner. ??Reporting is completed in the form [...] Comment:Fasting specimen HDL Cholesterol 74 >50 mg/dL [facility] LDL Cholesterol Calculated 90 0 - 129 [...] CDT 01/11/2015 11:06 AM CDT Flor Antonio STRUCTURES ASSEMBLER CARGO MATE LAB - BL OOD ORDERABLES [facility] [address] [place] [address] * Comprehensive metabolic panel (01/11/2015 11:03 AM [...] CDT 01/11/2015 11:06 AM CDT Flor Antonio STRUCTURES ASSEMBLER CARGO MATE LAB - BL OOD ORDERABLES [facility] [address] [place] [address] * Colonoscopy - HIM Scan (10/21/2014) Narrative Alyssa Ibanez - 10/21/2014 Colonoscopy done on this date: 10/2014 (approximately), by this group: , results were normal. Follow up 5 yrs Patient Reported PROCEDURES from Last 3 Months or Most Recently Relevant to Health Maintenance Care Teams Laydown Machine Operator Relationship Specialty Start Date End Date Varsha Rendon MD [facility] [address] [place] [address] PCP - General Internal Medicine 05/24/15
--- OUTSIDE RECORDS SUMMARY | 2024-01-18 14:29 | XMS_ITS | Encounter Summary ---
Author Organization [facility] Address [address] [place] [address] Care Team Providers Care Wood Cut Engraver Name Role Phone MelykishaFlor serrato APRN PLATFORM MAN Unavailable Verified, No Ref-Primary Primary Care Provider U Liv Fregoso MD Unavailable Varsha Rendon MD Primary Care Provider Ness Thompson MD Unavailable Kelly Watson APRN PLATFORM MAN Unavailable Ness Thompson MD Unavailable [phone] Kelly Watson APRN PLATFORM MAN Unavailable Ness Thompson MD Unavailable [phone] Encounter Details Date Type Department Care Team (Late st Contact Info) Description 05/03/2015 [facility] [address] [address] Armen Rhodes RN Social History [...] on filedocumented in this encounter Care Teams Wood Cut Engraver Relationship Specialty Start Date End Date Verified, No Ref-Primary PCP - General 01/12/15 05/23/15 Varsha Rendon MD [facility] & [address] [address] PCP - General Internal Medicine 05/24/15 Flor Antonio APRN PLATFORM MAN Referring Physician Nurse Practitioner 01/12/15 10/21/20 Liv Costa MD [facility] DERMATOLOGY [address] [address] Dermatology 01/12/15 03/12/17 Ness Thompson MD XXX RETIRED 09/20/2021 XXX Assigned OBGYN Provider 02/13/2004/03 Kelly Watson APRN PLATFORM MAN [address] [facility] [address] [place] [address] Assigned OBGYN Provider 12/26/20 Ness Thompson MD XXX RETIRED 09/20/2021 XXX Assigned OBGYN Provider 01/16/21 Kelly Watson APRN PLATFORM MAN [address] [facility] [address] [place] [address] Assigned OBGYN Provider 01/14/22 3 3 Ness Thompson MD XXX RETIRED 09/20/2021 XXX Assigned OBGYN Provider 06/24/22 documented as of this encounter
--- OUTSIDE RECORDS SUMMARY | 2024-01-18 14:31 | XMS_ITS | Clinical Summary ---
Author Organization [facility] Address [place], [place] [address] Care Team Providers Care Solvent Plant Operator Name Role Phone Varsha Rendon MD Primary Care Provider [phone] Allergies No known active allergies Medications Medication [...] Comments Blood Pressure 123/82 06/19/2019 1:15 PM MANUSCRIPTS ARCHIVIST Pulse 79 06/19/2019 1:15 PM MANUSCRIPTS ARCHIVIST Temperature 36.4 ??C (97.6 ??F) 03/19/2017 9:48 AM CS T Respiratory Rate 14 03/19/2017 9:48 AM MANUSCRIPTS ARCHIVIST Oxygen Saturation 95% 03/19/2017 9:48 AM MANUSCRIPTS ARCHIVIST Inhaled Oxygen Concentration - - Weight 70.8 kg (156 lb) 06/19/2019 1:15 PM MANUSCRIPTS ARCHIVIST Height 154.9 cm (5' 1) 06/19/2019 1:15 PM MANUSCRIPTS ARCHIVIST Body Mass Index 29.48 06/19/2019 1:15 PM MANUSCRIPTS ARCHIVIST Plan of Treatment Health Maintenance Due Date Last Done Comments Depression screening for age 12+ 1955 Zoster (shingles) series for age 50+ (1 of 2) 1993 DEXA/DXA scan for age 65+ 2008 Medicare Wellness for age 65+ 2008 RSV vaccine for adults or pr egnancy (1 - 1-dose 75+ series) 2018 Tetanus booster 04/23/2019 04/23/2009 BMI (ht and wt on same day) for age 18+ 06/19/2020 06/19/2019 COVID-19 vaccine series ( - 2023-25 season) 2023 Influenza for age 65+ 12/23/2023 02/19/2017 , 02/04/2016, 01/11/2015 Tdap Completed 04/23/2009 Pneumococcal series for age 65+ Completed 2, 04/23/2010 Advance Directives * Full Code (Latest Code Status on File) Date Activated Date Inactivated Comments 03/14/2017 10:58 PM 03/19/2017 4:49 PM Care Teams Solvent Plant Operator Relationship Specialty Start Date End Date Varsha Rendon MD [address] [place] [address] PCP - General Internal Medicine 03/19/17
--- NOTE | 2024-01-18 14:40 | CRLHL7_ITS ---
For Patients: As a result of the Century Cures Act, medical imaging exams and procedure reports are released immediately into your electronic medical record. You may view this report before your referring provider. If you have questions, please contact your health care provider. BILATERAL SCREENING MAMMOGRAM WITH COMPUTER-AIDED DETECTION AND TOMOSYNTHESIS TECHNIQUE: CC and MLO views were obtained. These mammographic images have been obtained using full-field digital technique. These mammographic images were interpreted with the benefit of computer-aided detection. Breast Tomosynthesis was used in this interpretation. COMPARISON FILM: 11/27/22, 11/15/21, 10/04/20. FINDINGS: There are scattered areas of fibroglandular density. IMPRESSION: There is no radiographic evidence for malignancy. ASSESSMENT: BI-RADS Category 1: Negative RECOMMENDATION: Routine screening mammogram in 1 year. A lay language report of this examination will be provided to the patient. Lenin Cardoso M.D. Diagnostic Radiologist [email or web address] SP/Dictated by: Lenin Cardoso MD @ 01/21/2024 10:07:00 AM (Electronically Signed)
== END 2024-01-18 14:27 | disposition home or self-care (01) ==
LOC: MAMMO 14:27
PROVIDERS: PCP Internal Medicine; Visit Provider Internal Medicine
DX: Z12.31 Encounter for screening mammogram for malignant neoplasm of breast (principal)
CPT/HCPCS: 77063; 77067

== ENCOUNTER 2024-04-11 08:14 | Outpatient (CLI) | payer MEDICARE, BC, SELFPAY | END 2024-04-11 08:15 | disposition home or self-care (01) | LOC: NFLDREF 23:40 | PROVIDERS: PCP Internal Medicine; Referring Provider Internal Medicine; Visit Provider Internal Medicine | DX: E78.5 Hyperlipidemia, unspecified (principal); M85.80 Other specified disorders of bone density and structure, unspecified site | CPT/HCPCS: 80061; 82306 ==

== ENCOUNTER 2024-09-18 09:29 | Outpatient (CLI) | payer MEDICARE, BC, SELFPAY | END 2024-09-18 09:30 | disposition home or self-care (01) | LOC: NFLDREF 09:30 | PROVIDERS: PCP Internal Medicine; Visit Provider Internal Medicine | DX: I10 Essential (primary) hypertension (principal) | CPT/HCPCS: 80053 ==

== ENCOUNTER 2025-01-19 13:45 | Outpatient (RCR) | payer MEDICARE, BC, SELFPAY | END 2025-04-21 17:29 | disposition home or self-care (01) | PROVIDERS: PCP Internal Medicine; Visit Provider Orthopaedic Surgery | DX: M17.12 Unilateral primary osteoarthritis, left knee (principal); M25.562 Pain in left knee; Z51.89 Encounter for other specified aftercare | CPT/HCPCS: 97110; 97112; 97116; 97140; 97161 ==

== ENCOUNTER 2025-01-20 09:06 | Outpatient (CLI) | payer MEDICARE, BC, SELFPAY ==
--- NOTE | 2025-01-20 09:15 | CRLHL7_ITS ---
For Patients: As a result of the Century Cures Act, medical imaging exams and procedure reports are released immediately into your electronic medical record. You may view this report before your referring provider. If you have questions, please contact your health care provider. INDICATION: BILATERAL SCREENING MAMMOGRAM, ASYMPTOMATIC 79 Y/O FEMALE COMPARISON: 01/18/2024, 11/27/2022, 11/15/2021 TECHNIQUE: Digital mammogram in CC and MLO projections including computer-aided detection (CAD) and tomosynthesis. BREAST COMPOSITION: There are scattered areas of fibroglandular density. FINDINGS: No suspicious findings. ASSESSMENT: BI-RADS 1 Negative RECOMMENDATION: Annual screening mammogram. A lay language report of this examination will be provided to the patient. Dictated by: Lenin Cardoso MD @ 01/21/2025 08:37:59 (Electronically Signed)
== END 2025-01-20 09:07 | disposition home or self-care (01) ==
LOC: MAMMO 09:07
PROVIDERS: PCP Internal Medicine; Visit Provider Internal Medicine
DX: Z12.31 Encounter for screening mammogram for malignant neoplasm of breast (principal)
CPT/HCPCS: 77063; 77067

== ENCOUNTER 2025-04-13 09:10 | Outpatient (CLI) | payer MEDICARE, BC, SELFPAY | END 2025-04-13 09:11 | disposition home or self-care (01) | LOC: NFLDREF 04-18 17:54 | PROVIDERS: PCP Internal Medicine; Referring Provider Internal Medicine; Visit Provider Internal Medicine | DX: E78.5 Hyperlipidemia, unspecified (principal); M85.80 Other specified disorders of bone density and structure, unspecified site | CPT/HCPCS: 80061; 82306 ==